=== PATIENT | male | born 1985 ===

== ENCOUNTER 2023-01-26 11:55 | Emergency (ER) | payer MEDICAID, SELFPAY ==
--- NOTE | ~2023-01-26 | CT_ITS ---
EXAMINATION: CT ABDOMEN AND PELVIS WITHOUT CONTRAST CLINICAL INFORMATION: Hematuria, urinating clots. COMPARISON: None available. TECHNIQUE: Multidetector volumetric imaging was performed from the superior aspect of the liver through the pubic symphysis. Sagittal and coronal reformatted images were obtained on the technologist's workstation. This CT examination was performed using dose optimization techniques as appropriate, variously including the following: *Automated exposure control *Adjustment of mA and/or kV according to patient size (this includes techniques or standardized protocols for targeted exams where dose is matched to indication/reason for exam; i.e. extremities or head) *Use of iterative reconstruction technique DLP: 574 mGy-cm FINDINGS: LUNG BASES: No pulmonary consolidation or pleural effusion. HEPATOBILIARY: The liver has normal size, shape, and attenuation. Gallbladder has a normal appearance. No radiopaque stones, wall thickening or pericholecystic fluid. No dilated bile ducts. PANCREAS: No edema, pancreatic ductal dilatation or mass. SPLEEN: Normal. ADRENAL GLANDS: Normal. KIDNEYS AND URETERS: The kidneys have normal size with normal cortical thickness and attenuation. Small 0.3 cm calyceal stone is present in the posterolateral interpolar region of the right kidney. No evidence of left renal stones. The ureters are unremarkable. BLADDER: Normal. No calculi or wall thickening. No imaging evidence of acute cystitis. BOWEL AND PERITONEUM: Stomach is unremarkable. No dilated loops of bowel. The appendix is normal. No overt bowel wall thickening or mesenteric fat stranding. No free fluid or pneumoperitoneum. ABDOMINAL WALL: Unremarkable. VASCULATURE: Mild atherosclerotic calcification of the abdominal aorta without aneurysm. Several phleboliths are seen within the lower pelvis. LYMPH NODES: No pathologic sized lymph nodes in the abdomen or pelvis. No inguinal lymphadenopathy. PELVIC VISCERA: Prostate gland measures approximately 4.5 x 3.2 x 3.9 cm. MUSCULOSKELETAL: Unremarkable. CT/CT abdomen pelvis wo IV con IMPRESSION: * There is a 0.3 cm stone of the right kidney. No ureteral stones or hydroureteronephrosis. * Urinary bladder is unremarkable. * If the patient has an unexplained, unresolving hematuria, then consider further evaluation with a CT urography examination.
[2023-01-26 11:59] VITALS: BP 128/89; PULSE 113; RESP 18; TEMP 37.1; O2SAT 95; BMI 27.4
[2023-01-26 13:00] LABS: Hemoglobin 16.6 g/dl (14.0-18.0); Mean Corpuscular HGB Conc 34.6 g/dl (31.0-36.0); Mean Corpuscular Hemoglobin 29.3 pg (27.0-33.0); Mean Corpuscular Volume 84.7 fL (80.0-98.0); Mean Platelet Volume 10.3 fL (9.4-12.4); Platelet Count 226 X10*3/uL (160-400); Red Blood Count 5.67 X10*6/uL (4.60-5.80); Red Cell Distribution Width 13.1 % (11.0-16.0); White Blood Count 6.9 X10*3/uL (4.8-10.8)
[2023-01-26 13:21] LABS: Anion Gap 16 (12-20); Blood Urea Nitrogen 10 mg/dL (9-16); Calcium 9.7 mg/dL (8.4-10.2); Carbon Dioxide 25 mmol/L (22-29); Chloride 106 mmol/L (96-108); Creatinine Clr Calc Pharmacy 132.7; Estimated Glomerular Filt Rate > 60; Glucose Random 98 mg/dL (60-115); Potassium 3.9 mmol/L (3.3-5.1); Sodium 143 mmol/L (135-145)
[2023-01-26 13:28] LABS: Appearance Urine Clear; Color Urine Yellow; Glucose Urine UA Negative (Negative); Leukocyte Esterase Urine Negative (Negative); Nitrite Urine Negative (Negative); Specific Gravity - Urine 1.025 (1.005-1.025); UMIC TRIGGER UACC YES; Urine Blood Large (3+) (Negative); Urine Ketones Trace mg/dL (Negative); Urine Protein Trace mg/dL (Neg-Trace)
[2023-01-26 13:36] LABS: Bacteria Urine None Seen (None Seen); Hyaline Casts Urine 0-2 /LPF (0-2); Squamous Epithelial Cell Urine 0-2 /HPF (0-2); WBC Urine 0-5 /HPF (0-5)
[2023-01-26 15:14] VITALS: BP 136/83; PULSE 73; RESP 18; TEMP 37.1; O2SAT 96
--- NOTE | 2023-01-26 16:17 | ED.MALEGU ---
HPI - Male Genitourinary General Chief complaint: Urogenital-Male Stated complaint: Blood in urine Time Seen by Provider: 01/26/23 16:07 Source: patient, RN notes reviewed and old records reviewed Mode of arrival: ambulatory History of Present Illness HPI Narrative: 37-year-old Danish-speaking male with no significant past medical history presenting to the ED complaining of intermittent hematuria/urinating dark red clots x3 days. Reports initially started a few days ago and then again this morning. Describes as urinating normally and then feels increased pressure and passes a clot. Denies associated abdominal/suprapubic pain, flank pain, nausea/vomiting, lightheadedness/dizziness, history of stones or taking anticoagulation Related Data Allergies Allergy/AdvReac Type Severity Reaction Status Date / Time No Known Allergies Allergy Verified 01/26/23 11:58 Review of Systems Review of Systems: Constitutional: No Fever, No Chills ENT/Mouth: No Ear Pain, No Nasal Congestion, No sore throat, No Rhinorrhea, No Swallowing Difficulty Cardiovascular: No Chest Pain, No SOB Respiratory: No Cough, No Sputum, No Wheezing Gastrointestinal: No Nausea, No Vomiting, No Diarrhea, No Constipation, No Abdominal pain Genitourinary: No Dysuria, No Urinary Frequency, +Hematuria, No Urinary Incontinence/retention, No Urgency, No Flank Pain Musculoskeletal: No joint pain, No Myalgias, No Joint Swelling Skin: No Skin Lesions, No rash Neuro: No Weakness Yes all other systems are reviewed and are negative Constitutional: Constitutional: Reports as per [facility] Past Medical History Attestation statement: The following information was validated with the patient. Source: old records reviewed Social History Social History Smoked in Last 30 Days: Yes Use of substances other than those prescribed or required for medical reasons: Yes Substance Use Type: Marijuana Advance Directives: No Advance Directives Information Provided: No Physical Exam Vital Signs: Vital Signs: Last Vital Signs Temp 98.3 F 01/26/23 19:17 Pulse 69 01/26/23 19:17 Resp 17 01/26/23 19:17 BP 123/70 01/26/23 19:17 Pulse Ox 97 01/26/23 19:17 O2 Del Method Room Air 01/26/23 19:17 BMI result Body Mass Index 27.4 Const: General: cooperative, healthy appearing and no acute distress Orientation/consciousness: patient oriented x3 Limitations: no limitations HEENT: Head: Yes normal to inspection and Yes atraumatic Ears: hearing grossly normal bilaterally General nose exam: Normal external nose present Face and sinus: Yes normal facial exam Eyes: General: appearance normal, both eyes and all related structures EOM: EOMs intact bilaterally Neck: Neck: Yes normal visual inspection and Yes no meningeal signs Resp: Effort & Inspection: normal respiratory effort and no respiratory distress Cardio: Rate: regular rate GI: Inspection: Yes normal to inspection Palpation (GI): Soft to palpation, nontender, no guarding and not rigid : General: Yes no CVA tenderness Back/Spine/Pelvis: Back: no CVA tenderness Skin: Rashes: no rashes Wounds: no wounds Neuro: General: patient oriented x3, tone normal and no meningeal signs Cranial nerves: Yes CN's II-XII intact bilaterally Gait exam (Neuro): Normal gait present Extrem: General: Yes normal to inspection Course Course Course Narrative: -1636--H&H stable. No leukocytosis. Labs otherwise reassuring -UA with yellow-colored urine, positive blood and RBCs 1855--CT abdomen pelvis wo IV con IMPRESSION: * There is a 0.3 cm stone of the right kidney. No ureteral stones or hydroureteronephrosis. * Urinary bladder is unremarkable. * If the patient has an unexplained, unresolving hematuria, then consider further evaluation with a CT urography examination. -ALT mildly elevated. CPK WNL > Results discussed with patient including worrisome signs and symptoms and strict return precautions, and when to return to the emergency department. They verbalized understanding and feel safe for discharge at this time. Medications Administered Discontinued Medications Generic Name Dose Route Start Last Admin Trade Name Freq PRN Reason Stop Dose Admin Sodium Chloride 1,000 mls @ 999 mls/hr 01/26/23 16:30 01/26/23 17:43 Ns IV 01/26/23 17:30 Infused .Q1H1M KETURAH Infusion Medical Decision Making Medical Decision Making [facility] Narrative: 37-year-old Danish-speaking male with no significant past medical history presenting to the ED complaining of intermittent hematuria/urinating dark red clots x3 days. On exam initially tachycardic, NAD, nontoxic appearing, abdomen soft/nontender, no CVAT. Concern for UTI vs renal stone. Rule out anemia or mass rhabdomyolysis. Low suspicion for pyelonephritis Plan: Labs, UA, CT AP, IVF Please refer to course for remaining clinical decision making, interpretation of labs/imaging results, and discussions with consultants and/or family members. Differential Diagnosis Differential Diagnoses: The differential diagnosis associated with the presentation includes As above Admission/Observation Consideration of admission/observation: Escalation of care including admission/observation considered Lab Data MDM Lab Attestation statement: I reviewed the patient's lab results. 01/26/23 12:19 01/26/23 12:19 Labs: Lab Results 01/26/23 01/26/23 Range/Units 12:19 13:20 WBC 6.9 (4.8-10.8) X10*3/uL RBC 5.67 (4.60-5.80) X10*6/uL Hgb 16.6 (14.0-18.0) g/dl Hct 48.0 (42.0-52.0) % MCV 84.7 (80.0-98.0) fL MCH 29.3 (27.0-33.0) pg MCHC 34.6 (31.0-36.0) g/dl RDW 13.1 (11.0-16.0) % Plt Count 226 (160-400) X10*3/uL MPV 10.3 (9.4-12.4) fL Absolute Nucleated RBC 0.000 (0.0-0.012) X10*3/uL Nucleated RBC % (auto) 0.0 (0.0-0.2) /100WBC Sodium 143 (135-145) mmol/L Potassium 3.9 (3.3-5.1) mmol/L Chloride 106 (96-108) mmol/L Carbon Dioxide 25 (22-29) mmol/L Anion Gap 16 (12-20) BUN 10 (9-16) mg/dL Creatinine 0.86 (0.5-1.4) mg/dL Estim Creat Clear Calc 132.7 Estimated GFR > 60 Random Glucose 98 (60-115) mg/dL Calcium 9.7 (8.4-10.2) mg/dL Total Bilirubin 0.7 (0.0-1.0) mg/dL Direct Bilirubin 0.2 (0.0-0.5) mg/dL AST 29 (5-37) U/L ALT 66 H (0-40) U/L Alkaline Phosphatase 99 (39-117) U/L Total Creatine Kinase 139 (38-174) U/L Total Protein 7.6 (6.5-8.0) g/dL Albumin 4.6 (3.5-5.0) g/dL Urine Color Yellow Urine Appearance Clear Urine pH 6.0 (5.0-9.0) Ur Specific [place] 1.025 (1.005-1.025) Urine Protein Trace (Neg-Trace) mg/dL Urine Glucose (UA) Negative (Negative) mg/dL Urine Ketones Trace (Negative) mg/dL Urine Blood Large (3+) H (Negative) Urine Nitrite Negative (Negative) Ur Leukocyte Esterase Negative (Negative) Urine RBC 3-5 H (0-2) /HPF Urine WBC 0-5 (0-5) /HPF Ur Squamous Epith Cells 0-2 (0-2) /HPF Urine Bacteria None Seen (None Seen) Hyaline Casts 0-2 (0-2) /LPF Independent Interpretation I performed an independent interpretation of an: CT Scan Radiology Impression Discussion of test interpretation with radiology: I have reviewed the radiologist's reading. External Record Review External record reviewed: Inpatient record, Office record, Outpatient record, Prior outpatient labs, Prior outpatient radiology, Primary care record and Outside ED record Tests considered The following testing was considered but not selected: As above Discharge Plan Discharge Clinical Impression: Hematuria, Kidney stone on right side Patient Disposition: Home, Self-Care Instructions: Hematuria (ED) Additional Instructions: Your blood work is reassuring Your urine does have blood in it however is not infected You have a kidney stone inside of her right kidney, it is possibly passed a stone which is causing the clotting, however YOU NEED TO FOLLOW-UP WITH UROLOGY FOR FURTHER MANAGEMENT If symptoms persist or worsen you develop pain, fever, nausea or vomiting return to the emergency department Tu an?lisis de renato es tranquilizador. Moore orina tiene renato dhara no est? infectada. Usted tiene un c?lculo renal dentro de moore ri??n derecho, posiblemente se haya pasado un c?lculo que est? causando la coagulaci?n, sin embargo, USTED NECESITA SEGUIMIENTO CON UROLOG?A PARA UN MANEJO ADICIONAL. Si los s?ntomas persisten o empeoran, presenta dolor, fiebre, n?useas o v?mitos, regrese al departamento de emergencias. Referrals: [facility] [Provider Group] - 1 week Print Language: Danish
[2023-01-26] MEDS: 0.9 % Sodium Chloride 1,000 ML 999 ML IV (16:40)
[2023-01-26 16:41] VITALS: BP 120/81; PULSE 61; RESP 16; O2SAT 96
[2023-01-26 19:17] VITALS: BP 123/70; PULSE 69; RESP 17; TEMP 36.8; O2SAT 97
[2023-01-26 19:29] LABS: Alanine Aminotransferase 66 U/L (0-40); Aspartate Amino Transferase 29 U/L (5-37); Bilirubin Direct 0.2 mg/dL (0.0-0.5); Bilirubin Total 0.7 mg/dL (0.0-1.0); Total Protein 7.6 g/dL (6.5-8.0)
[2023-01-26 19:30] LABS: Albumin Level 4.6 g/dL (3.5-5.0); Alkaline Phosphatase 99 U/L (39-117)
[2023-01-26 19:50] VITALS: BP 134/87; PULSE 66; RESP 16; TEMP 37.1; O2SAT 96
== END 2023-01-26 19:53 | disposition home or self-care (01) ==
PROVIDERS: Physician Assistant; Emergency Provider Emergency Medicine
DX: R31.9 Hematuria, unspecified (principal); N20.0 Calculus of kidney; R00.0 Tachycardia, unspecified
CPT/HCPCS: 36415; 74176; 80048; 80076; 81001; 82550; 85027; 96360; 99284; 99285

== ENCOUNTER 2023-02-02 13:27 | Emergency (ER) | payer MEDICAID, SELFPAY ==
--- NOTE | ~2023-02-02 | CT_ITS ---
EXAMINATION: CT abdomen pelvis wo IV con CLINICAL INFORMATION: Rest hematuria. COMPARISON: 01/26/2023 TECHNIQUE: Multidetector volumetric imaging was performed from the superior aspect of the liver through the pubic symphysis , noncontrast CT Sagittal and coronal reformatted images were obtained on the technologist's workstation. This CT examination was performed using dose optimization techniques as appropriate, variously including the following: *Automated exposure control *Adjustment of mA and/or kV according to patient size (this includes techniques or standardized protocols for targeted exams where dose is matched to indication/reason for exam; i.e. extremities or head) *Use of iterative reconstruction technique DLP: 610 mGy-cm FINDINGS: LOWER THORAX: Included lung bases are clear. HEPATOBILIARY: No focal hepatic lesions. No biliary ductal dilatation. GALLBLADDER: Gallbladder unremarkable. SPLEEN: Spleen is normal in size. PANCREAS: No focal mass or ductal dilatation. STOMACH AND GASTROINTESTINAL TRACT: Stomach is grossly unremarkable. There is no bowel distention or thickening. No CT evidence of appendicitis. ADRENALS: No adrenal nodules. KIDNEYS/URETERS: There is a 2 mm nonobstructing stone middle calyx right kidney. URINARY BLADDER: There is oval soft tissue mass posterior wall of the bladder measures 5.3 x 2.9 cm concerning for solid lesion not well evaluated due to lack of contrast. PELVIC VISCERA: Unremarkable PERITONEUM: No free air or fluid. LYMPH NODES: No lymphadenopathy. VASCULAR:Abdominal aorta normal in size, no aneurysm found. BONES, ABDOMINAL WALL AND SOFT TISSUES: Age-appropriate changes of the spine and skeletal system, no destructive osteolytic or osteosclerotic bone lesion found CT/CT abdomen pelvis wo IV con IMPRESSION: * There is oval soft tissue mass posterior wall of the bladder 5.3 x 2.9 cm concerning for solid lesion not well evaluated due to lack of contrast. Consider correlation with follow-up CT urogram and/or urology consultation for cystoscopy. * There is a 2 mm nonobstructing stone middle calyx right kidney. * No lymphadenopathy.
[2023-02-02 13:51] VITALS: BP 144/91; PULSE 74; RESP 18; TEMP 37.1; O2SAT 97
--- NOTE | 2023-02-02 14:07 | ED_ITS ---
HPI - Male Genitourinary General Chief complaint: Abdominal Pain Stated complaint: Blood in urine Time Seen by Provider: 02/02/23 16:40 Source: patient, family and harp regulator Mode of arrival: ambulatory Limitations: no limitations History of Present Illness HPI Narrative: 37-year-old male came in for evaluation of gross hematuria and urine retention intermittent for the past week patient seen and evaluated in the emergency department unremarkable workup including abdominal CT, patient return today for unable to urinate since this morning and passing bright red blood from the penis. Patient is complaining of suprapubic pain and pressure due to distension of the urinary bladder. Patient has no fever, chills, nausea, or vomiting. Related Data Home Medications Medication Instructions Recorded Confirmed No Known Home Meds 02/02/23 02/02/23 Allergies Allergy/AdvReac Type Severity Reaction Status Date / Time No Known Allergies Allergy Verified 01/26/23 11:58 Review of Systems 2 Review of Systems: All other systems are reviewed and are negative Constitutional: Reports as per HPI and Reports no additional constitutional complaints Eyes: Reports as per HPI and Reports no additional eye complaints Reports system reviewed and no additional complaints, except as documented Cardiovascular: Reports as per HPI and Reports no additional cardiovascular complaints Respiratory: Reports as per HPI and Reports no additional respiratory complaints Gastrointestinal: Reports as per HPI and Reports no additional gastrointestinal complaints Genitourinary: Reports no additional female genitourinary complaints Musculoskeletal: Reports no additional musculoskeletal complaints Skin/Breast: Reports system reviewed and no additional complaints, except as docu Psychiatric: Reports no additional psychiatric complaints Endocrine: Reports no additional endocrine complaints Hematologic/Lymphatic: Reports no additional hematologic/lymphatic complaints Allergic/Immunologic: Reports no additional allergic/immunologic complaints Reports system reviewed and no additional complaints, except as documented and Reports Abnormal speech present [facility] Social History Social History Substance Use Type: Marijuana Advance Directives: No Advance Directives Information Provided: No Physical Exam 2 Vital Signs: Vital Signs: Last Vital Signs Temp 98.0 F 02/03/23 02:40 Pulse 54 02/03/23 02:40 Resp 14 02/03/23 06:35 BP 140/86 H 02/03/23 02:40 Pulse Ox 98 02/03/23 02:40 O2 Del Method Room Air 02/03/23 02:40 BMI result Body Mass Index 30.0 Vital signs have been reviewed and appear to be correct. Blood pressure elevated. Heart rate normal. Respiratory rate normal. Temperature normal. Oxygen saturation normal. Appearance: Alert. Oriented X3. No acute distress. Head: Normal external exam. Normocephalic. Atraumatic. No Kothari signs noted. No raccoon eyes noted Eyes: PERRLA. EOMI. Conjunctiva and sclera normal. Eyelids normal. ENT: TM's Normal. Pharynx normal. Uvula midline. Moist mucous membranes. No trismus noted. No drooling noted. No muffled voice noted. Neck: Normal inspection. Neck supple. FROM. No adenopathy. Thyroid Normal. No meningeal signs. No neck mass noted. CVS: Normal heart rate and rhythm. Heart sound normal. No murmurs noted. Pulses normal throughout. Respiratory: No respiratory distress. Painless inspiration. Breath sounds normal. No wheezes/rales/rhonchi noted. Chest nontender. No accessory muscle usage noted or decreased air movement noted. Abdomen: Soft and nontender. Bowel sounds normal in all 4 quadrants. No distention noted. No organomegaly noted. No visible injury noted. Back: No CVA tenderness. Full range of motion noted. Skin: Skin warm and dry. Normal skin color. Normal skin turgor. No rashes/lesions/lacerations noted. Extremities: No lower extremity edema. Extremities exhibit normal range of motion. Extremities nontender. Neuro: Oriented X 3. Cranial nerve exam: II-XII are grossly intact No motor deficit. No sensory deficit. Reflexes normal. Course Course Course Narrative: This is an RME: Additional HPI, ROS, PE not included below will be deferred to primary provider. Patient is a 37-year-old male who presents to the emergency department Reports able to urinate a very small amount and then has blood. suprapubic pain. States he was seen here recently states he was diagnosed with kidney stone. 15:15 - reports increased pain, attempted to urinate, unable, bladder scan 443, chargeback analyst made aware Plan: labs, U/A Reevaluation(s) Reevaluation #1: 37-year-old male presented with gross hematuria and urinary retention CT abdomen concern urinary bladder mass. Patient had 3 ways Soto catheter with irrigation was still blood in the urine the case discussed with Dr. Peck who will admit the patient to his service. Patient is hemodynamically stable. Time: 22:50 Medications Administered Generic Name Dose Route Start Last Admin Trade Name Freq PRN Reason Stop Dose Admin Sodium Chloride 1,000 mls @ 100 mls/hr 02/03/23 03:15 02/03/23 03:36 Ns IVCONT 100 mls/hr .Q10H KETURAH Administration Oxycodone HCl 5 mg 02/03/23 03:39 02/03/23 05:39 Oxycodone Hcl Immed Release 5 Mg Tablet PO 5 mg Q6H PRN Administration Pain, Severe (Pain Scale 7-10) Discontinued Medications Generic Name Dose Route Start Last Admin Trade Name Freq PRN Reason Stop Dose Admin Ceftriaxone Sodium 1 gm/ 50 mls @ 100 mls/hr 02/02/23 22:52 02/03/23 00:35 Sodium Chloride IV 02/02/23 23:21 Infused ONCE ONE Infusion Lidocaine HCl 10 ml 02/02/23 18:02 02/02/23 18:28 Lidocaine Hcl 2 % Urojet 10 Ml Jel.Pf.Minh TOPICAL 02/02/23 18:03 10 ml ONCE ONE Administration Lidocaine HCl 10 ml 02/02/23 20:10 02/02/23 20:11 Lidocaine Hcl 2 % Urojet 10 Ml Jel.Pf.Minh TOPICAL 02/02/23 20:11 10 ml ONCE ONE Administration Morphine Sulfate 2 mg 02/02/23 20:35 02/02/23 20:39 Morphine Sulfate 2 Mg/Ml Cartridge IVPUSH 02/02/23 20:36 2 mg ONCE ONE Administration Protocol Morphine Sulfate 2 mg 02/03/23 01:25 02/03/23 01:30 Morphine Sulfate 2 Mg/Ml Cartridge IVPUSH 02/03/23 01:26 2 mg ONCE ONE Administration Protocol Morphine Sulfate 4 mg 02/03/23 06:28 02/03/23 06:35 Morphine Sulfate 4 Mg/Ml Cartridge IVPUSH 02/03/23 06:29 4 mg ONCE ONE Administration Protocol Medical Decision Making Medical Decision Making [facility] Narrative: 630 am Patient with gross hematuria was seen here on 01/26 noted to have a small kidney stone came here for increased pain and retention with passing blood clot earlier CT scan showed mass in the base of the bladder which in fact are the blood clots which was confirmed after manual irrigation done and blood clots came out discussed with radiologist agreed with the blood clot not of tumor/mass case discussed with Dr. Peck who will come and see the patient Case discussed with Dr. Peck does need to be seen in the ER patient has clear cell in draining now will discharge the patient home advised to follow-up with outpatient Differential Diagnosis Differential Diagnoses: The differential diagnosis associated with the presentation includes (Kidney stone, urogenital tumor, hemodynamic instability, severe anemia, electrolyte abnormality, UTI.) Admission/Observation Consideration of admission/observation: Escalation of care including admission/observation considered Consult Healthcare Provider Management of the patient was discussed with: Valet Service Attendant (Dr. Peck) Lab Data MDM Lab Attestation statement: I reviewed the patient's lab results. 02/02/23 15:29 02/02/23 15:29 Labs: Lab Results 02/02/23 02/02/23 Range/Units 15:29 18:29 WBC 9.0 (4.8-10.8) X10*3/uL RBC 5.98 H (4.60-5.80) X10*6/uL Hgb 17.0 (14.0-18.0) g/dl Hct 50.0 (42.0-52.0) % MCV 83.6 (80.0-98.0) fL MCH 28.4 (27.0-33.0) pg MCHC 34.0 (31.0-36.0) g/dl RDW 13.4 (11.0-16.0) % Plt Count 253 (160-400) X10*3/uL MPV 9.5 (9.4-12.4) fL Immature Gran % (Auto) 0.2 (0.0-0.4) % Neut % (Auto) 65.1 (45-73) % Lymph % (Auto) 22.2 (20-40) % [place] % (Auto) 8.4 (2-11) % Eos % (Auto) 3.7 (0-4) % Baso % (Auto) 0.4 (0-2) % Lymph # (Auto) 2.0 (1.2-4.9) X10*3/uL [place] # (Auto) 0.8 (0.1-1.2) X10*3/uL Eos # (Auto) 0.3 (0.0-0.4) X10*3/uL Baso # (Auto) 0.0 (0.0-0.2) X10*3/uL Abs Immat Gran (auto) 0.02 (0.00-0.03) X10*3/uL Absolute Neuts (auto) 5.9 (2.0-8.3) x10*3/uL Absolute Nucleated RBC 0.000 (0.0-0.012) X10*3/uL Nucleated RBC % (auto) 0.0 (0.0-0.2) /100WBC Sodium 141 (135-145) mmol/L Potassium 3.9 (3.3-5.1) mmol/L Chloride 106 (96-108) mmol/L Carbon Dioxide 24 (22-29) mmol/L Anion Gap 15 (12-20) BUN 9 (9-16) mg/dL Creatinine 0.86 (0.5-1.4) mg/dL Estim Creat Clear Calc 129.1 Estimated GFR > 60 Random Glucose 95 (60-115) mg/dL Calcium 9.9 (8.4-10.2) mg/dL Total Bilirubin 0.7 (0.0-1.0) mg/dL AST 50 H (5-37) U/L ALT 109 H (0-40) U/L Alkaline Phosphatase 113 (39-117) U/L Total Protein 8.0 (6.5-8.0) g/dL Albumin 4.8 (3.5-5.0) g/dL Urine Color [place] Urine Appearance Turbid Urine pH 7.5 (5.0-9.0) Ur Specific [place] 1.025 (1.005-1.025) Urine Protein 300 (3+) H (Neg-Trace) mg/dL Urine Glucose (UA) Negative (Negative) mg/dL Urine Ketones Trace (Negative) mg/dL Urine Blood Large (3+) H (Negative) Urine Nitrite Positive H (Negative) Ur Leukocyte Esterase Negative (Negative) Urine RBC >20 H (0-2) /HPF Urine WBC 11-20 H (0-5) /HPF Ur Squamous Epith Cells 0-2 (0-2) /HPF Urine Bacteria None Seen (None Seen) Hyaline Casts 0-2 (0-2) /LPF Independent Interpretation I performed an independent interpretation of an: CT Scan (Abdomen and pelvis:* There is oval soft tissue mass posterior wall of the bladder 5.3 x 2.9 cm concerning for solid lesion not well evaluated due to lack of contrast. Consider correlation with follow-up CT urogram and/or urology consultation for cystoscopy. * There is a 2 mm nonobstructing stone) Radiology Impression Discussion of test interpretation with radiology: I have reviewed the radiologist's reading. Discharge Plan Discharge Clinical Impression: Gross hematuria Patient Disposition: Home, Self-Care Prescriptions: No Action No Known Home Meds
[2023-02-02 15:35] LABS: MANUAL DIFF FLAG NO
[2023-02-02 15:39] LABS: Basophils Percent Auto 0.4 % (0-2); Eosinophils Absolute Auto 0.3 X10*3/uL (0.0-0.4); Eosinophils Percent Auto 3.7 % (0-4); Imm Gran Abs Auto 0.02 X10*3/uL (0.00-0.03); Imm Gran Pct Auto 0.2 % (0.0-0.4); Lymphocytes Percent Auto 22.2 % (20-40); Mean Corpuscular Hemoglobin 28.4 pg (27.0-33.0); Mean Corpuscular Volume 83.6 fL (80.0-98.0); Mean Platelet Volume 9.5 fL (9.4-12.4); Monocytes Absolute Auto 0.8 X10*3/uL (0.1-1.2); Monocytes Percent Auto 8.4 % (2-11); Neutrophils Absolute Auto 5.9 x10*3/uL (2.0-8.3); Neutrophils Percent Auto 65.1 % (45-73); Platelet Count 253 X10*3/uL (160-400); Red Blood Count 5.98 X10*6/uL (4.60-5.80); Red Cell Distribution Width 13.4 % (11.0-16.0)
[2023-02-02 15:49] LABS: Alanine Aminotransferase 109 U/L (0-40); Albumin Level 4.8 g/dL (3.5-5.0); Alkaline Phosphatase 113 U/L (39-117); Anion Gap 15 (12-20); Aspartate Amino Transferase 50 U/L (5-37); Bilirubin Total 0.7 mg/dL (0.0-1.0); Blood Urea Nitrogen 9 mg/dL (9-16); Calcium 9.9 mg/dL (8.4-10.2); Carbon Dioxide 24 mmol/L (22-29); Chloride 106 mmol/L (96-108); Creatinine Clr Calc Pharmacy 129.1; Estimated Glomerular Filt Rate > 60; Glucose Random 95 mg/dL (60-115); Potassium 3.9 mmol/L (3.3-5.1); Sodium 141 mmol/L (135-145)
--- NOTE | 2023-02-02 18:27 | PC.NURSE ---
Soto cath placed 16 fr 10 cc balloon, patient tolerated well. aprox 1000 ml urine drainage into bag
[2023-02-02] MEDS: Lidocaine HCl 2 % Urojet 10 ML JEL.PF.APP TOPICAL ×2 (18:28→20:11)
[2023-02-02 18:34] LABS: Appearance Urine Turbid; Color Urine Orange; Glucose Urine UA Negative (Negative); Leukocyte Esterase Urine Negative (Negative); Nitrite Urine Positive (Negative); PH 7.5 (5.0-9.0); Specific Gravity - Urine 1.025 (1.005-1.025); UMIC TRIGGER UACC YES; Urine Blood Large (3+) (Negative); Urine Ketones Trace mg/dL (Negative); Urine Protein 300 (3+) mg/dL (Neg-Trace)
[2023-02-02 18:48] LABS: Bacteria Urine None Seen (None Seen); Hyaline Casts Urine 0-2 /LPF (0-2); RBC Urine >20 /HPF (0-2); Squamous Epithelial Cell Urine 0-2 /HPF (0-2); UACC Culture Trigger YES
[2023-02-02 19:55] VITALS: BP 118/72; PULSE 67; RESP 18; TEMP 37.1; O2SAT 97
[2023-02-02 20:39] VITALS: RESP 18
[2023-02-02] MEDS: Morphine Sulfate 2 MG/ML CARTRIDGE IVPUSH (20:39)
--- NOTE | 2023-02-02 20:57 | PC.NURSE ---
20G IV line inserted in L AC, patient medicated with Morphine 2 mg IV push.
--- NOTE | 2023-02-02 21:00 | PC.NURSE ---
Urojet used for 3 way catheter insertion for CBI-22 Fr catheter used, balloon inflated with 30 mL of sterile water. Patient reports discomfort during insertion and reports pain in lower abdomen /. Cather connected to CBI bag with dark red blood output noted in catheter bag, no clots. Patient requests pain medication. Dr. Lowry notified.
--- NOTE | 2023-02-02 22:50 | PC.NURSE ---
First bag of irrigation solution infused, catheter bag emptied with 4,000 mL of light red blood, no blood clots noted in catheter bag. Second irrigation bag hung and running.
[2023-02-03] MEDS: cefTRIAXone sodium 1 GM in 0.9 % Sodium Chloride 50 ML IV (00:03)
[2023-02-03 01:30] VITALS: RESP 16
[2023-02-03] MEDS: Morphine Sulfate 2 MG/ML CARTRIDGE IVPUSH (01:30)
--- NOTE | 2023-02-03 01:30 | PC.NURSE ---
Patient medicated with Morphine 2 mg IV push.
--- NOTE | 2023-02-03 01:30 | PC.NURSE ---
Second irrigation completed, catheter bag emptied with 3,900 of blood tinged output noted in catheter bag. Patient reports requests pain medication for pain in lower abdomen.
--- NOTE | 2023-02-03 01:32 | PC.NURSE ---
Third irrigation solution bag hung and running.
--- NOTE | 2023-02-03 02:06 | PC.NURSE ---
Dr. Lowry ordered blood cultures x2, per MD lactic acid drawn not needed.
[2023-02-03 02:40] VITALS: BP 140/86; PULSE 54; RESP 16; TEMP 36.7; O2SAT 98
--- NOTE | 2023-02-03 03:11 | PC.NURSE ---
Third irrigation bag completed, [place] bag emptied with 3,600 mL of blood tinged drainage noted in the beg.
--- NOTE | 2023-02-03 03:13 | PC.NURSE ---
Forth irrigation bag hung, patient tolerating CBI well.
[2023-02-03] MEDS: 0.9 % Sodium Chloride 1,000 ML 100 ML IVCONT (03:36)
[2023-02-03] MEDS: oxyCODONE HCl Immed Release 5 MG TABLET PO (05:39)
--- NOTE | 2023-02-03 05:49 | PC.NURSE ---
Forth irrigation bag completed, drainage output 3,900 mL, blood tinged, no blood clots noted. [place] irrigation bag hang and running. Patient reports 8/10 pain and pressure in 3 way catheter insertion site when he feeling urge to urinate. Catheter insertion site assessed, intact, 3 way catheter patent. Patient medicated with Oxycodone 5 mg-effect pending.
[2023-02-03 06:35] VITALS: RESP 14
[2023-02-03] MEDS: Morphine Sulfate 4 MG/ML CARTRIDGE IVPUSH (06:35)
--- NOTE | 2023-02-03 06:46 | PC.NURSE ---
Dr. Aj lara at bedside, irrigated catheter and removed multiple medium size blood clots.
--- NOTE | 2023-02-03 06:58 | PC.NURSE ---
CBI and NS infusion discontinued by DR. Rocha. removed [address] catheter.
[2023-02-03] MEDS: cefuroxime axetiL 250 MG TABLET PO (07:29)
--- NOTE | 2023-02-03 07:29 | PC.NURSE ---
patient output of 100mL of urine
== END 2023-02-03 07:30 | disposition home or self-care (01) ==
PROVIDERS: Emergency Provider Emergency Medicine
DX: R31.0 Gross hematuria (principal); N32.89 Other specified disorders of bladder; R33.9 Retention of urine, unspecified; N20.0 Calculus of kidney
CPT/HCPCS: 36415; 51700; 74176; 80053; 81001; 85025; 87040; 87086; 96361; 96365; 96375; 96376; 99285; J0696; J2270

== ENCOUNTER 2023-02-20 08:25 | Outpatient (REF) | payer OTHER, SELFPAY ==
[2023-02-20 16:50] LABS: Urine Cytology See Pathology rpt
== END 2023-02-20 08:26 | disposition home or self-care (01) ==
LOC: HO.LAB 08:25
PROVIDERS: Visit Provider Urology
DX: R31.0 Gross hematuria (principal); R31.9 Hematuria, unspecified
CPT/HCPCS: 81003; 88112; 99202

== ENCOUNTER 2023-02-20 08:25 | Outpatient (AMB) | payer OTHER, SELFPAY ==
--- NOTE | 2023-02-20 08:27 | A.OFFVIS_ITS ---
Intake Intake Visit Reasons: Cystitis- ER follow up Intake Note: New Patient is Present for [facility] ER Follow Up For Cystitis Urology Medication: None Antibiotic Allergies:None Blood Thinners: None Patient had consultation with Dr Peck at ER Visit Allergies No Known Allergies Allergy (Verified 02/20/23 08:33) HPI HPI Comments History of Present Illness Details Soy is a Cook Islander-speaking male. He is seen for the following urologic conditions - gross hematuria Cook Islander translation provided in office by qualified phlebotomist medical lab assistant Recent evaluation in emergency room Treated with antibiotics Imaging performed - no clear-cut pathology on CT scanning Background of cigarette smoking but no exposure to chemicals in Workplace Urine culture negative Plan office cystoscopy [facility] Social History Substance Use Type: Marijuana Review of Systems Const Denies chills and Denies fever(s) Card Reports no additional complaints and Denies syncope Resp Denies cough GI Denies abdominal pain and Denies heartburn Reports as per HPI and Denies change in libido Neuro Denies syncope Psych Denies change in libido Endo Denies change in libido Physical Exam Const General: cooperative, healthy appearing, comfortable and no acute distress Orientation/consciousness: patient oriented x3 HEENT Face and sinus: Yes normal facial exam Mouth: moist mucous membranes Neck Neck: Yes normal visual inspection, Yes full ROM and Yes trachea midline Chest Chest palpation & inspection: normal inspection of the chest Resp Effort & Inspection: normal respiratory effort, able to speak in complete sentences and no respiratory distress GI Inspection: Yes normal to inspection Back/Spine/Pelvis Cervical Spine: normal cervical lordosis Thoracic/Lumbar Spine: thoracic and lumbar spine normal to inspection Skin General skin exam: no rashes or lesions noted Neuro General: patient oriented x3, gait normal, tone normal and moves all extremities Extrem General: Yes normal to inspection and Yes capillary refill normal Results AMB Urinalysis, Automated UA Leukoctes 0 Eric/uL Last Edit by MIGUEL Rai on 02/20/23 08:51 UA Nitrite Negative Last Edit by MIGUEL Rai on 02/20/23 08:51 UA Urobilinogen 0.2 mg/dL Last Edit by MIGUEL Rai on 02/20/23 08:5 1 UA Protein 0 mg/dL Last Edit by MIGUEL Rai on 02/20/23 08:51 UA pH 6.0 Last Edit by Becky Stoddard RMA on 02/20/23 08:51 UA Blood 0 Mason/uL Last Edit by Becky Stoddard, A on 02/20/23 08:51 UA Specific [place] 1.015 Last Edit by Becky Stoddard, RMA on 02/20/23 08: 51 UA Ketone Negative Last Edit by Becky Stoddard A on 02/20/23 08:51 UA Bilirubin 0 mg/dL Last Edit by Becky Stoddard RMA on 02/20/23 08:51 UA Glucose 0 mg/dL Last Edit by Becky Stoddard A on 02/20/23 08:51 Results Reviewed Results Reviewed: Laboratory Last Values Urine pH (Auto) 6.0 02/20/23 08:33 Specific [place] (Auto) 1.015 02/20/23 08:33 Urine Protein (Auto) 0 mg/dL 02/20/23 08:33 Glucose (UA)(Auto) 0 mg/dL 02/20/23 08:33 Urine Ketones (Auto) Negative 02/20/23 08:33 Urine Blood (Auto) 0 Mason/uL 02/20/23 08:33 Urine Nitrite (Auto) Negative 02/20/23 08:33 Urine Bilirubin (Auto) 0 mg/dL 02/20/23 08:33 Urine Urobilinogen (Auto) 0.2 mg/dL 02/20/23 08:33 Leukocyte Esterase (Auto) 0 Eric/uL 02/20/23 08:33 Assessment & Plan Assessment & Plan (1) Gross hematuria: Code(s): R31.0 - Gross hematuria (2) Hematuria: Code(s): R31.9 - Hematuria, unspecified Plan Office cystoscopy Orders: Orders AMB Urinalysis Automated Today Z13.9 - Encounter for screening, unspecified Urine Cytology Today R31.0 - Gross hematuria, R31.9 - Hematuria, unspecified Patient Instructions: Imaging studies, laboratory and physical exam results were discussed and reviewed in detail. No major barriers to patient understanding were identified. An opportunity to ask questions regarding the treatment plan was provided. All questions were answered. The patient expressed understanding and agreement with the above treatment plan. The patient is aware they should contact our office by phone for worsening of their current condition or the appearance of new urologic symptoms. Compliance is encouraged with any medications and followup testing that is ordered. It is a privilege to participate in the urologic care of your patient. If you have any questions or concerns regarding treatment for the above conditions, or other urologic issues, please do not hesitate to contact me. The office telephone contact is [phone]. This note is constructed using voice recognition software. While every effort has been made to ensure accuracy director game errors may have been included. Yours sincerely, Dr Kale Peck MD, GAGANDEEP [facility] - Urology Providers of Expert, Compassionate Care for the Genitourinary System Coding Level of Care Code New Pt Level 4 (64835) Diagnoses Gross hematuria R31.0 Hematuria R31.9
== END 2023-02-20 09:18 | disposition home or self-care (01) ==
PROVIDERS: Visit Provider Urology
DX: R31.0 Gross hematuria (principal)
CPT/HCPCS: 99203

== ENCOUNTER 2023-04-01 09:46 | Outpatient (REF) | payer MEDICAID, SELFPAY ==
--- NOTE | ~2023-04-01 | XR_ITS ---
EXAMINATION: XR KNEE, LEFT CLINICAL INFORMATION: Osteoarthritis. COMPARISON: None available. TECHNIQUE: Four views of the left knee. FINDINGS: Trace joint effusion. Mild medial joint space narrowing. Minimal marginal osteophytes. XR/XR knee LT 4V IMPRESSION: Mild degenerative changes.
[2023-04-01 10:09] LABS: MANUAL DIFF FLAG NO
[2023-04-01 10:47] LABS: Basophils Percent Auto 0.5 % (0-2); Eosinophils Absolute Auto 0.3 X10*3/uL (0.0-0.4); Eosinophils Percent Auto 4.6 % (0-4); Hematocrit 51.9 % (42.0-52.0); Hemoglobin 17.2 g/dl (14.0-18.0); Imm Gran Abs Auto 0.01 X10*3/uL (0.00-0.03); Imm Gran Pct Auto 0.2 % (0.0-0.4); Lymphocytes Absolute Auto 2.5 X10*3/uL (1.2-4.9); Lymphocytes Percent Auto 40.2 % (20-40); Mean Corpuscular HGB Conc 33.1 g/dl (31.0-36.0); Mean Corpuscular Hemoglobin 28.2 pg (27.0-33.0); Mean Corpuscular Volume 85.1 fL (80.0-98.0); Monocytes Absolute Auto 0.6 X10*3/uL (0.1-1.2); Monocytes Percent Auto 9.1 % (2-11); Neutrophils Absolute Auto 2.9 x10*3/uL (2.0-8.3); Neutrophils Percent Auto 45.4 % (45-73); Platelet Count 213 X10*3/uL (160-400); Red Cell Distribution Width 13.3 % (11.0-16.0); White Blood Count 6.3 X10*3/uL (4.8-10.8)
[2023-04-01 11:25] LABS: Alanine Aminotransferase 78 U/L (0-40); Albumin Level 4.1 g/dL (3.5-5.0); Alkaline Phosphatase 121 U/L (39-117); Anion Gap 12 (12-20); Aspartate Amino Transferase 35 U/L (5-37); Bilirubin Total 0.7 mg/dL (0.0-1.0); Blood Urea Nitrogen 9 mg/dL (9-16); Calcium 9.3 mg/dL (8.4-10.2); Carbon Dioxide 28 mmol/L (22-29); Chloride 106 mmol/L (96-108); Cholesterol 233 mg/dL (<200); Estimated Glomerular Filt Rate > 60; Glucose Random 93 mg/dL (60-115); HDL Cholesterol 43 mg/dL (>40); LDL Cholesterol Calculated 157 mg/dL (<100); Sodium 142 mmol/L (135-145); Triglycerides 167 mg/dL (<150)
[2023-04-01 11:41] LABS: HBc Num1 0.06 S/CO (0.00-0.79); HBsAGNum1 0.32 S/CO (0.00-0.99); Hepatitis B Core Antibody Nonreactive (Nonreactive); Hepatitis B Surface Antigen Negative (Negative); ~HepC Num1 0.11 S/CO (0.00-0.79); ~Hepatitis B Surface Antibody REACTIVE (Nonreactive); ~Hepatitis C Antibody Nonreactive (Nonreactive)
[2023-04-03 14:53] LABS: HCV RNA PCR Qn <1.18 NOT DETECTED Log IU/mL (NOT DETECTED); HCV RNA PCR Qn <15 NOT DETECTED IU/mL (NOT DETECTED)
== END 2023-04-01 09:47 | disposition home or self-care (01) ==
LOC: HO.LAB 09:46
PROVIDERS: PCP Internal Medicine; Visit Provider Internal Medicine
DX: M17.12 Unilateral primary osteoarthritis, left knee (principal); M23.92 Unspecified internal derangement of left knee; M54.50 Low back pain, unspecified; F17.290 Nicotine dependence, other tobacco product, uncomplicated; Z00.01 Encounter for general adult medical examination with abnormal findings
CPT/HCPCS: 36415; 73564; 80053; 80061; 85025; 86704; 86706; 86803; 87340; 87522

== ENCOUNTER 2023-04-18 09:01 | Outpatient (AMB) | payer MEDICAID, SELFPAY ==
--- NOTE | 2023-04-18 09:11 | MHC.OFFVIS ---
Intake Intake Visit Reasons: cysto(Portal Confirm) Intake Note: Patient is Present for Cystoscopy Urology Med: None Antibiotic Allergy:None Blood Thinner: None Patient was previously seen by Dr Peck for blood in the urine URO- G Disposable Cystoscope lot: [id number] exp:06/23/24 Allergies No Known Allergies Allergy (Verified 04/18/23 09:13) HPI HPI Comments History of Present Illness Details Soy is a Vincentian-speaking male. He is seen for the following urologic conditions - gross hematuria Vincentian translation provided in office by qualified medical practice administrator Cystoscopy for gross hematuria Chronic cystitis Low-dose antibiotics 1 month Gross hematuria Recent evaluation in emergency room Treated with antibiotics Imaging performed - no clear-cut pathology on CT scanning Background of cigarette smoking but no exposure to chemicals in Workplace Urine culture negative Cytology negative Plan office cystoscopy [facility] Social History Substance Use Type: Marijuana Review of Systems Const Denies chills and Denies fever(s) Card Reports no additional complaints and Denies syncope Resp Denies cough GI Denies abdominal pain and Denies heartburn Reports as per HPI and Denies change in libido Neuro Denies syncope Psych Denies change in libido Endo Denies change in libido Physical Exam Const General: cooperative, healthy appearing, comfortable and no acute distress Orientation/consciousness: patient oriented x3 HEENT Face and sinus: Yes normal facial exam Mouth: moist mucous membranes Neck Neck: Yes normal visual inspection, Yes full ROM and Yes trachea midline Chest Chest palpation & inspection: normal inspection of the chest Resp Effort & Inspection: normal respiratory effort, able to speak in complete sentences and no respiratory distress GI Inspection: Yes normal to inspection Back/Spine/Pelvis Cervical Spine: normal cervical lordosis Thoracic/Lumbar Spine: thoracic and lumbar spine normal to inspection Skin General skin exam: no rashes or lesions noted Neuro General: patient oriented x3, gait normal, tone normal and moves all extremities Extrem General: Yes normal to inspection and Yes capillary refill normal Office Procedures Cystoscopy Consent Discussed risk and benefit or proposed procedure with the patient. Information consent for procedure given to the patient. Discussed technical aspects, risks, benefits and alternatives in full. Addressed all of the patient's questions and concerns regarding the procedure. The patient demonstrated knowledge and understanding. They wish to proceed with this procedure. Preparation The patient was prepped in the usual manner. A property clerk was present and in the room. Genitalia was prepped with betadine solution in a sterile manner. Lidocaine Jelly 2% was placed into the urethra and 16Fr flexible Olympus cystoscope was inserted into the meatus after adequate lubrication. Procedure Meatus circumcised Urethra anterior and posterior urethra normal Prostatic Urethra unremarkable Bladder examination with retroflexion of cystoscope Bladder Orifices normal shape and position Bladder Capacity medium Trabeculations - Cellule Formation - Diverticulum Formation - Mucosal Erythema cystitis cystica Bladder Tumor - 47652-[id number] DISPOSABLE SCOPE URO-G FLEXIBLE SCOPE Procedure code (CPT) selection complete Office Meds lidocaine HCl 2 % mucosal jelly in applicator Performing Provider: Kale Peck MD Performing Location: [facility] [place] [facility] Administered by: Angie Walls RN on 04/18/23 09:31 Dose Route Admin Location Dispensed Lot Number Expiration Date ND Retail Field Supervisor 10 mL intra-urethral 10 mL nitrofurantoin monohydrate/macrocrystals 100 mg capsule Performing Provider: Kale ePck MD Performing Location: [facility] [place] [facility] Administered by: Angie Walls RN on 04/18/23 09:31 Dose Route Admin Location Dispensed Lot Number Expiration Date NDC Retail Field Supervisor 100 mg PO 1 cap naproxen 500 mg tablet Performing Provider: Kale Peck MD Performing Location: [facility] [place] [facility] Administered by: Angie Walls RN on 04/18/23 09:31 Dose Route Admin Location Dispensed Lot Number Expiration Date NDC Retail [employer] Supervisor 500 mg PO 1 tab Results AMB Urinalysis, Automated UA Leukoctes 0 Eric/uL Last Edit by MIGUEL Rai on 04/18/23 09:21 UA Nitrite Negative Last Edit by MIGUEL Rai on 04/18/23 09:21 UA Urobilinogen 0.2 mg/dL Last Edit by MIGUEL Rai on 04/18/23 09:21 UA Protein 0 mg/dL Last Edit by MIGUEL Rai on 04/18/23 09:21 UA pH 7.0 Last Edit by MIGUEL Rai on 04/18/23 09:21 UA Blood 0 Mason/uL Last Edit by MIGUEL Rai on 04/18/23 09:21 UA Specific [place] 1.015 Last Edit by Becky Stoddard RMA on 04/18/23 09:21 UA Ketone Negative Last Edit by RONNIE RaiA on 04/18/23 09:21 UA Bilirubin 0 mg/dL Last Edit by Becky Stoddard, RMA on 04/18/23 09:21 UA Glucose 0 mg/dL Last Edit by RONNIE RaiA on 04/18/23 09:21 Results Reviewed Results Reviewed: Laboratory Last Values Urine pH (Auto) 7.0 04/18/23 09:13 Specific [place] (Auto) 1.015 04/18/23 09:13 Urine Protein (Auto) 0 mg/dL 04/18/23 09:13 Glucose (UA)(Auto) 0 mg/dL 04/18/23 09:13 Urine Ketones (Auto) Negative 04/18/23 09:13 Urine Blood (Auto) 0 Mason/uL 04/18/23 09:13 Urine Nitrite (Auto) Negative 04/18/23 09:13 Urine Bilirubin (Auto) 0 mg/dL 04/18/23 09:13 Urine Urobilinogen (Auto) 0.2 mg/dL 04/18/23 09:13 Leukocyte Esterase (Auto) 0 Eric/uL 04/18/23 09:13 Assessment & Plan Assessment & Plan (1) Gross hematuria: Code(s): R31.0 - Gross hematuria (2) Cystitis: Code(s): N30.90 - Cystitis, unspecified without hematuria Plan Three-month follow-up tele Orders: Orders AMB Urinalysis Automated Today Z13.9 - Encounter for screening, unspecified AMB Cystoscopy Today R31.0 - Gross hematuria, R31.9 - Hematuria, unspecified Medications: New doxycycline hyclate 100 mg PO DAILY 28 days 28 tabs 0RF N30.90 - Cystitis, unspecified without hematuria Patient Instructions: Imaging studies, laboratory and physical exam results were discussed and reviewed in detail. No major barriers to patient understanding were identified. An opportunity to ask questions regarding the treatment plan was provided. All questions were answered. The patient expressed understanding and agreement with the above treatment plan. The patient is aware they should contact our office by phone for worsening of their current condition or the appearance of new urologic symptoms. Compliance is encouraged with any medications and followup testing that is ordered. It is a privilege to participate in the urologic care of your patient. If you have any questions or concerns regarding treatment for the above conditions, or other urologic issues, please do not hesitate to contact me. The office telephone contact is [phone]. This note is constructed using voice recognition software. While every effort has been made to ensure accuracy sample prep technician errors may have been included. Yours sincerely, Dr Kale Peck MD, GAGANDEEP [facility] - Urology Providers of Expert, Compassionate Care for the Genitourinary System Coding Level of Care Code Est Pt Level 4 (98390) Diagnoses Gross hematuria R31.0 Cystitis N30.90 CPT Codes Cystoscopy - CPT: 31356-[id number] ([id number])
== END 2023-04-18 09:57 | disposition home or self-care (01) ==
PROVIDERS: Visit Provider Urology
DX: N30.90 Cystitis, unspecified without hematuria (principal); R31.0 Gross hematuria; R31.9 Hematuria, unspecified; Z13.9 Encounter for screening, unspecified
CPT/HCPCS: 52000; 99213

== ENCOUNTER → 2023-04-18 09:01 | Outpatient (BNVA) | payer MEDICAID, SELFPAY | PROVIDERS: Visit Provider Urology | DX: R31.0 Gross hematuria (principal); N30.90 Cystitis, unspecified without hematuria | CPT/HCPCS: 52000; 81003; 99212 ==

== ENCOUNTER 2023-07-01 15:33 | Outpatient (REF) | payer MEDICAID, SELFPAY ==
--- NOTE | ~2023-07-01 | MR_ITS ---
EXAMINATION: MR KNEE WITHOUT CONTRAST, LEFT CLINICAL INFORMATION: Internal derangement. Patient reports pain. COMPARISON: X-ray the left knee March 2023 TECHNIQUE: MRI of the knee without contrast was performed using routine sequences on a high-field scanner. FINDINGS: MENISCI: Medial Meniscus: Intact Lateral Meniscus: Intact LIGAMENTS: Cruciate: Intact Collateral: Intact EXTENSOR MECHANISM: Intact ARTICULAR CARTILAGE/BONE: Patellofemoral Compartment: Normal Medial Compartment: Normal Lateral Compartment: Normal JOINT FLUID AND BURSAE: Normal MR/MR knee LT wo con IMPRESSION: Normal MRI of the left knee.
== END 2023-07-01 15:34 | disposition home or self-care (01) ==
LOC: HO.MRI 15:33
PROVIDERS: PCP Internal Medicine; Visit Provider Internal Medicine
DX: M23.92 Unspecified internal derangement of left knee (principal)
CPT/HCPCS: 73721

== ENCOUNTER 2023-09-09 13:31 | Outpatient (AMB) | payer MEDICAID, SELFPAY ==
--- NOTE | 2023-09-09 13:53 | MHC.OFFVIS ---
Intake Visit Reasons: 3M Follow Up- Urinalysis Check Intake Note: Patient is Present for 3m f/u urinalysis check Urology Med: doxcycline Antibiotic Allergy:None Blood Thinner: None Film Drying Machine Operator Required: No Allergies No Known Allergies Allergy (Verified 09/09/23 13:55) HPI Comments Details: Soy is a Palauan-speaking male. He is seen for the following urologic conditions - gross hematuria Palauan translation provided in office by qualified medical massage therapist Follow-up from 1 month low-dose antibiotics PVR negative Significant improvement in urgency and frequency Off medications P.r.n. follow-up Gross hematuria Recent evaluation in emergency room Treated with antibiotics Imaging performed - no clear-cut pathology on CT scanning Background of cigarette smoking but no exposure to chemicals in Workplace Urine culture negative Cytology negative Plan office cystoscopy [facility] Social History Substance Use Type: Marijuana Review of Systems Const Denies chills and Denies fever(s) Card Reports no additional complaints and Denies syncope Resp Denies cough GI Denies abdominal pain and Denies heartburn Reports as per HPI and Denies change in libido Neuro Denies syncope Psych Denies change in libido Endo Denies change in libido Physical Exam Const General: cooperative, healthy appearing, comfortable and no acute distress Orientation/consciousness: patient oriented x3 HEENT Face and sinus: Yes normal facial exam Mouth: moist mucous membranes Neck Neck: Yes normal visual inspection, Yes full ROM and Yes trachea midline Chest Chest palpation & inspection: normal inspection of the chest Resp Effort & Inspection: normal respiratory effort, able to speak in complete sentences and no respiratory distress GI Inspection: Yes normal to inspection Back/Spine/Pelvis Cervical Spine: normal cervical lordosis Thoracic/Lumbar Spine: thoracic and lumbar spine normal to inspection Skin General skin exam: no rashes or lesions noted Neuro General: patient oriented x3, gait normal, tone normal and moves all extremities Extrem General: Yes normal to inspection and Yes capillary refill normal Results AMB Urinalysis, Automated UA Leukoctes 0 Eric/uL Last Edit by VIRGINIA Paiz on 09/09/23 14:07 UA Nitrite Negative Last Edit by VIRGINIA Paiz on 09/09/23 14:07 UA Urobilinogen 0.2 mg/dL Last Edit by VIRGINIA Paiz on 09/09/23 14:07 UA Protein 0 mg/dL Last Edit by [facility] on 09/09/23 14:07 UA pH 7.0 Last Edit by Rochelle Garcia [facility] on 09/09/23 14:07 UA Blood 0 Mason/uL Last Edit by Rochelle Garcia [facility] on 09/09/23 14:07 UA Specific [place] 1.015 Last Edit by Rochelle Garcia [facility] on 09/09/23 14:07 UA Ketone Negative Last Edit by [facility]hel[facility] on 09/09/23 14:07 UA Bilirubin 0 mg/dL Last Edit by Rochelle Garcia [facility] on 09/09/23 14:07 UA Glucose 0 mg/dL Last Edit by Rochelle Garcia [facility] on 09/09/23 14:07 Results Reviewed Results Reviewed: Laboratory Last Values Urine pH (Auto) 7.0 09/09/23 14:05 Specific [place] (Auto) 1.015 09/09/23 14:05 Urine Protein (Auto) 0 mg/dL 09/09/23 14:05 Glucose (UA)(Auto) 0 mg/dL 09/09/23 14:05 Urine Ketones (Auto) Negative 09/09/23 14:05 Urine Blood (Auto) 0 Mason/uL 09/09/23 14:05 Urine Nitrite (Auto) Negative 09/09/23 14:05 Urine Bilirubin (Auto) 0 mg/dL 09/09/23 14:05 Urine Urobilinogen (Auto) 0.2 mg/dL 09/09/23 14:05 Leukocyte Esterase (Auto) 0 Eric/uL 09/09/23 14:05 Assessment & Plan Assessment & Plan (1) Cystitis: Code(s): N30.90 - Cystitis, unspecified without hematuria Category: Medical Plan P.r.n. follow-up Orders: Orders AMB Urinalysis Automated Today Z13.9 - Encounter for screening, unspecified Patient Instructions: Imaging studies, laboratory and physical exam results were discussed and reviewed in detail. No major barriers to patient understanding were identified. An opportunity to ask questions regarding the treatment plan was provided. All questions were answered. The patient expressed understanding and agreement with the above treatment plan. The patient is aware they should contact our office by phone for worsening of their current condition or the appearance of new urologic symptoms. Compliance is encouraged with any medications and followup testing that is ordered. It is a privilege to participate in the urologic care of your patient. If you have any questions or concerns regarding treatment for the above conditions, or other urologic issues, please do not hesitate to contact me. The office telephone contact is [phone]. This note is constructed using voice recognition software. While every effort has been made to ensure accuracy personal assistant errors may have been included. Yours sincerely, Dr Kale Peck MD, GAGANDEEP [facility] - Urology Providers of Expert, Compassionate Care for the Genitourinary System Coding Level of Care Code Est Pt Level 3 (79700) Diagnoses Cystitis N30.90
== END 2023-09-09 14:30 | disposition home or self-care (01) ==
PROVIDERS: PCP Internal Medicine; Visit Provider Urology
DX: N30.90 Cystitis, unspecified without hematuria (principal); Z13.9 Encounter for screening, unspecified
CPT/HCPCS: 99213

== ENCOUNTER → 2023-09-09 13:31 | Outpatient (BNVA) | payer MEDICAID, SELFPAY | PROVIDERS: PCP Internal Medicine; Visit Provider Urology | DX: N30.90 Cystitis, unspecified without hematuria (principal) | CPT/HCPCS: 81003; 99212 ==